=== PATIENT | male | born 1940 | race Caucasian/White ===

== ENCOUNTER 2017-12-22 22:50 | Emergency (ER) | payer MEDICARE, OTHER ==
[~2017-12-22] VITALS: Ht 175.3 cm; Wt 97.5 kg
[~2017-12-22 22:50] MED LIST: CENTRUM SILVER1 EAC4 PO; ELIQUIS5 MG PO; HYDROCODONE-AP1 EAC6 PO; LIPITOR40 MG PO; LOPRESSOR100 M1 PO; METFORMIN HCL500 MG PO; PACERONE 200 M200 M1 PO
[2017-12-22] MEDS ORDERED: AMARYL2 M1 (23:04)
[2017-12-22] MEDS ORDERED: COUMADIN 5 MG TA5 M1 (23:04)
[2017-12-22] MEDS ORDERED: FISH OIL 1,2001 EAC3 (23:05)
[2017-12-22 23:53] LABS: ABSOLUTE EOSINOPHILS 0.3 thou/uL (0.0-0.7); ABSOLUTE LYMPHOCYTES 1.8 thou/uL (0.8-5.3); ABSOLUTE MONOCYTES 1.1 thou/uL (0.0-1.2); ABSOLUTE NEUTROPHILS 4.2 thou/uL (1.6-8.1); BASOPHILS 0.6 %; EOSINOPHILS 3.5 %; HEMATOCRIT 41.4 % (42.0-52.0); LYMPHOCYTES 24.6 %; MCH 32.1 pg (26.0-34.0); MCHC 33.7 g/dL (28.0-37.0); MCV 95.3 fL (80.0-100.0); MONOCYTES 14.5 %; MPV 9.1 fl. (7.2-11.1); NUCLEATED RBCS 0 /100WBC; PLATELET COUNT* 187 thou/uL (150-400); POLYS 56.8 %; RBC 4.35 mil/uL (4.50-6.00); RDW-CV 14.2 % (10.5-14.5); WBC 7.3 thou/uL (4.0-11.0)
[2017-12-23 00:02] LABS: CALCIUM 9.2 mg/dL (8.5-10.1); CREATININE 0.9 mg/dL (0.6-1.3); POTASSIUM 4.1 mmol/L (3.5-5.1)
[2017-12-23 00:03] LABS: APTT 37.7 Seconds (25.0-31.3); PROTIME 28.6 Seconds (9.20-11.50)
[2017-12-23 00:14] LABS: ALBUMIN 3.2 g/dL (3.4-5.0); TOTAL BILIRUBIN 0.4 mg/dL (<0.1-1.0); TOTAL PROTEIN 6.8 g/dL (6.4-8.2)
[2017-12-23] MEDS ORDERED: ZOFRAN ODT4 MG PO (03:38)
[2017-12-23] MEDS ORDERED: KEFLEX500 M1 PO (03:38)
[2017-12-23] MEDS ORDERED: HYDROCODON-ACE1 EAC7 PO (03:38)
[2017-12-23 04:12] VITALS: BP 128/53
== END 2017-12-23 04:14 | disposition home or self-care (01) ==
LOC: M.ERS 22:50
PROVIDERS: Personal Emergency Response Attendant
DX: S80.12XA Contusion of left lower leg, initial encounter (principal); L03.116 Cellulitis of left lower limb; E11.9 Type 2 diabetes mellitus without complications; I10 Essential (primary) hypertension; I48.91 Unspecified atrial fibrillation; Z88.8 Allergy status to other drugs, medicaments and biological substances; X58.XXXA Exposure to other specified factors, initial encounter; Y93.89 Activity, other specified; Y92.89 Other specified places as the place of occurrence of the external cause; Y99.8 Other external cause status